=== PATIENT | male | born 1990 | race Caucasian/White ===

== ENCOUNTER 2017-01-08 15:41 | Emergency (ER) | payer BC, MEDICAID ==
[~2017-01-08] VITALS: Ht 177.8 cm; Wt 72.6 kg
[2017-01-08 15:44] VITALS: BP_SYST 118
[2017-01-08] MEDS ORDERED: KETOROLAC TROMETHAMINE 60 MG/2 ML VIAL IM ONE (16:15)
[2017-01-08 16:40] VITALS: BP_SYST 118
== END 2017-01-08 16:40 ==
LOC: SED 15:41
DX: S62.326A Displaced fracture of shaft of fifth metacarpal bone, right hand, initial encounter for closed fracture (principal); M79.642 Pain in left hand; W22.8XXA Striking against or struck by other objects, initial encounter; Y93.89 Activity, other specified; Y92.89 Other specified places as the place of occurrence of the external cause; Y99.8 Other external cause status
CPT/HCPCS: 29125; 73130; 96372; 99284; J1885